=== PATIENT | male | born 1965 | race Caucasian/White ===

== ENCOUNTER 2019-03-02 10:43 | Inpatient (IN) | payer OTHER ==
[2019-03-02 11:20] VITALS: BMI 36.4
--- NOTE | 2019-03-02 12:36 | HP ---
CIWA Score Nausea/Vomitin-No Nausea/No Vomiting Muscle Tremors: 1-None Visible, but [place] Anxiety: 1-Mildly Anxious Agitation: 1-Slight > Activity Paroxysmal Sweats: No Perspiration Orientation: 0-Oriented Tacttile Disturbances: 0-None Auditory Disturbances: 0-None Visual Disturbances: 0-None Headache: 0-None Present CIWA-Ar Total Score: 3 - Admission Criteria OASAS Guidelines: Admission for Medically Managed Detox: Requires at least one of the followin. CIWA greater than 12 2. Seizures within the past 24 hours 3. Delirium tremens within the past 24 hours 4. Hallucinations within the past 24 hours 5. Acute intervention needed for co occurring medical disorder 6. Acute intervention needed for co occurring psychiatric disorder 7. Severe withdrawal that cannot be handled at a lower level of care (continued vomiting, continued diarrhea, abnormal vital signs) requiring intravenous medication and/or fluids 8. Admission ROS S - [facility] Chief Complaint: "I'm here for rehab" Allergies/Adverse Reactions: Allergies Allergy/AdvReac Type Severity Reaction Status Date / Time No Known Allergies Allergy Verified 03/02/19 11:14 History of Present Illness: 53 year old male with a past medical history of HIV (on HAART), angioplasty in R leg (2 stents), DVT in R leg (since 2005, on eliquis), hypertension, hypercholesterolemia here for rehab from alcohol and crack/cocaine. Was just in detox [facility] ([address]) that finished this morning, last dose of librium was last night. Had been in rehab before 7 years ago. Longest time clean 18 months (4-5 years ago). 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 - Detox or Rehab [facility] Level of Care: Medically Managed Breathalyzer - Breathalyzer Breathalyzer: 0 Urine Drug Screen - Test Device Lot number: [id number] Expiration date: 10/30/20 - Control Is test valid?: Yes - Results Drug screen NEGATIVE: Yes Inpatient Rehab Admission - Rehab Decision to Admit Inpatient rehab admission?: Yes - Initial Determination Are CD services needed?: Yes Free of communicable disease: No Not in need of hospitalization: Yes - Rehab Admission Criteria Previous failed treatment: Yes Poor recovery environment: Yes Comorbidities: Yes Lacks judgement: No Patient is meeting Inpatient Rehab admission criteria:: Yes
[2019-03-02] MEDS ORDERED: guaiFENesin 200 MG/10 ML 10 ML UNIT-DOSE CUPS PO PRN (12:49)
[2019-03-02] MEDS ORDERED: P-EPHED 60MG/TRIPROLIDI 2.5MG TABLET PO PRN (12:49)
[2019-03-02] MEDS ORDERED: LOPERAMIDE HCL 2 MG CAPSULE PO PRN (12:49)
[2019-03-02] MEDS ORDERED: ACETAMINOPHEN 325 MG TABLET (FP) PO PRN (12:49)
[2019-03-02] MEDS ORDERED: MAGNESIUM HYDROX 2400MG/30ML ORAL SUSPENSION 30 ML CUP PO PRN (12:49)
[2019-03-02] MEDS ORDERED: IBUPROFEN 400 MG TABLET (FP) PO PRN (12:49)
[2019-03-02] MEDS ORDERED: MENTHOL/PHENOL 1 EACH UD MM PRN (12:49)
[2019-03-02] MEDS ORDERED: MAGNESIUM CITRATE 300 ML BOTTLE PO PRN (12:49)
[2019-03-02] MEDS ORDERED: MAG HYDROX/AL HYDROX/SIMETH 30 ML UNIT-DOSE CUP PO PRN (12:49)
--- NOTE | 2019-03-02 13:11 | PN ---
Teaching Attending Note Name of Resident: Iain Guerrero ATTENDING PHYSICIAN STATEMENT I saw and evaluated the patient. I reviewed the resident's note and discussed the case with the resident. I agree with the resident's findings and plan as documented. SUBJECTIVE: 53 y.o. male here for rehab , completed detox today , has d/c paperwork , had prn Librium taper does not recall last time he took meds, utox neg bzo . Longest sobriety 18 mo , 4-5 ys ago . prior use 2 pints vodka/ day since age 18 , denies seizures, + blackouts . cocaine : 1.5 gr via inhalation PMHx : HIV (on HAART), angioplasty in R leg (2 stents), DVT in R leg (since 2005, on eliquis), IVC filter , hypertension, hypercholesterolemia OBJECTIVE: wnwd . ASSESSMENT AND PLAN: Alcohol dependence / Cocaine dependence - rehab Vital Signs - 24 hr 03/02/19 03/02/19 11:14 14:17 Temperature 98 F 98.1 F Pulse Rate 69 68 Respiratory 18 18 Rate Blood Pressure 133/86 121/75
[2019-03-02 17:13] LABS: HEMOGLOBIN 14.7 GM/dL (11.7-16.9); MCH 31.7 pg (25.7-33.7); MCHC 32.8 g/dl (32.0-35.9); MEAN CELL VOLUME 96.9 fl (80-96); MEAN PLT VOLUME 9.1 fl (7.5-11.1); PLATELET COUNT 274 K/MM3 (134-434); RBC 4.64 M/mm3 (4.00-5.60); RDW 13.6 % (11.9-15.9); WHITE BLOOD COUNT 9.3 K/mm3 (4.0-10.0)
[2019-03-02 17:16] LABS: ALBUMIN 4.1 g/dl (3.4-5.0); BILIRUBIN,TOTAL 0.3 mg/dL (0.2-1); BLOOD UREA NITROGEN 17.9 mg/dL (7-18); CALCIUM 8.9 mg/dL (8.5-10.1); TOT PROT 7.7 g/dl (6.4-8.2)
[2019-03-02] MEDS ORDERED: ATORVASTATIN CA 20 MG TABLET (FP) ONE (19:46)
[2019-03-02] MEDS: ATORVASTATIN CA 20 MG TABLET (FP) PO SCH (21:56)
[2019-03-02] MEDS: APIXABAN 2.5 MG TABLET PO SCH (21:56)
[2019-03-02] MEDS: THIAMINE HCL 100 MG TABLET (FP) PO SCH (21:56)
[2019-03-02] MEDS ORDERED: MAGNESIUM HYDROX 2400MG/30ML ORAL SUSPENSION 30 ML CUP ONE (21:58)
[2019-03-03] MEDS: BICTEGRAV/EMTRICIT/TENOFOV (BIKTARVY) 50-200-25 MG TABLET PO SCH (07:06)
[2019-03-03] MEDS: ASPIRIN 81 MG CHEWABLE TABLETS PO SCH (10:48)
[2019-03-03] MEDS: APIXABAN 2.5 MG TABLET PO SCH ×2 (10:48→21:40)
[2019-03-03] MEDS: PRENATAL VITAMINS W/ FOLIC ACID TABLET (FP) PO SCH (10:48)
[2019-03-03] MEDS: amLODIPine BESYLATE 10 MG TABLET (FP) PO SCH (10:48)
[2019-03-03] MEDS ORDERED: FLU VACCINE QUAD 60 MCG/0.5 ML (MDV 19-20) IM ONE (12:00)
--- NOTE | 2019-03-03 16:34 | PN ---
[facility] Progress Note Note: Pt requesting EKG stating he was told on admission it was going to be done. He wants it because "I am on Eliquis". Pt was admitted yesterday from [facility](See H/P) . Reports finished detox at [facility] yesterday. Reports was at [facility] and D/C'd 02/08/19. Denies c/p,dizziness,headache, nausea or vomiting. Pt has been oob ambulating with steady gait all through the day. Participated in groups. Vital Signs - 24 hr 03/03/19 03/03/19 03/03/19 00:30 03:30 07:08 Temperature 98.4 F Pulse Rate 68 Respiratory 18 18 16 Rate Blood Pressure 132/79 Laboratory Tests 03/02/19 03/02/19 03/02/19 13:00 13:00 13:00 WBC 9.3 RBC 4.64 Hgb 14.7 Hct 45.0 MCV 96.9 H MCH 31.7 MCHC 32.8 RDW 13.6 Plt Count 274 MPV 9.1 Sodium 141 Potassium 4.0 Chloride 107 Carbon Dioxide 29 Anion Gap 6 L BUN 17.9 Creatinine 1.0 Est GFR (CKD-EPI)AfAm 99.85 Est GFR (CKD-EPI)NonAf 86.15 Random Glucose 81 Calcium 8.9 Total Bilirubin 0.3 AST 27 ALT 61 Alkaline Phosphatase 73 Total Protein 7.7 Albumin 4.1 RPR Titer Nonreactive A/P Hx HTN HIV+ HLD DVT Right leg Angioplasty with stent Acohol dep Cocaine dep EKG, Routine ordered. D/w pt with nurse Santana to report any chest pain,arm pain/radiation,leg pain, dizziness to staff. D/w pt will need to transfer to [facility] if above symptoms present. Pt agreeable to poc.
[2019-03-03] MEDS: THIAMINE HCL 100 MG TABLET (FP) PO SCH (21:40)
[2019-03-03] MEDS: ATORVASTATIN CA 20 MG TABLET (FP) PO SCH (21:40)
[2019-03-04] MEDS: BICTEGRAV/EMTRICIT/TENOFOV (BIKTARVY) 50-200-25 MG TABLET PO SCH (07:06)
[2019-03-04] MEDS: APIXABAN 2.5 MG TABLET PO SCH ×2 (10:39→22:01)
[2019-03-04] MEDS: ASPIRIN 81 MG CHEWABLE TABLETS PO SCH (10:39)
[2019-03-04] MEDS: PRENATAL VITAMINS W/ FOLIC ACID TABLET (FP) PO SCH (10:39)
[2019-03-04] MEDS: amLODIPine BESYLATE 10 MG TABLET (FP) PO SCH (10:39)
--- NOTE | 2019-03-04 15:05 | EKG ---
Test Reason : Blood Pressure : / mmHG Vent. Rate : 062 BPM Atrial Rate : 062 BPM P-R Int : 164 ms QRS Dur : 098 ms QT Int : 428 ms P-R-T Axes : 050 047 048 degrees QTc Int : 434 ms NORMAL SINUS RHYTHM NORMAL ECG NO PREVIOUS ECGS AVAILABLE Confirmed by SILVIA RENDON MD ([id number]) on 03/04/2019 3:05:03 PM Referred By: Confirmed By:SILVIA RENDON MD
[2019-03-04 17:09] LABS: URINE APPEARANCE CLEAR; URINE BILIRUBIN NEGATIVE (NEGATIVE); URINE COLOR YELLOW; URINE GLUCOSE (UA) NEGATIVE (NEGATIVE); URINE KETONE NEGATIVE (NEGATIVE); URINE LEUK ESTERASE NEGATIVE (NEGATIVE); URINE NITRITE NEGATIVE (NEGATIVE); URINE PROTEIN NEGATIVE (NEGATIVE); URINE UROBILINOGEN 0.2 mg/dL (0.2-1.0)
[2019-03-04] MEDS: THIAMINE HCL 100 MG TABLET (FP) PO SCH (22:02)
[2019-03-04] MEDS: ATORVASTATIN CA 20 MG TABLET (FP) PO SCH (22:02)
[2019-03-05] MEDS: BICTEGRAV/EMTRICIT/TENOFOV (BIKTARVY) 50-200-25 MG TABLET PO SCH (07:26)
[2019-03-05] MEDS: ASPIRIN 81 MG CHEWABLE TABLETS PO SCH (11:09)
[2019-03-05] MEDS: amLODIPine BESYLATE 10 MG TABLET (FP) PO SCH (11:09)
[2019-03-05] MEDS: APIXABAN 2.5 MG TABLET PO SCH ×2 (11:09→21:50)
[2019-03-05] MEDS: PRENATAL VITAMINS W/ FOLIC ACID TABLET (FP) PO SCH (11:10)
[2019-03-05] MEDS: THIAMINE HCL 100 MG TABLET (FP) PO SCH (21:49)
[2019-03-05] MEDS: ATORVASTATIN CA 20 MG TABLET (FP) PO SCH (21:49)
[2019-03-06] MEDS: BICTEGRAV/EMTRICIT/TENOFOV (BIKTARVY) 50-200-25 MG TABLET PO SCH (07:09)
[2019-03-06] MEDS: amLODIPine BESYLATE 10 MG TABLET (FP) PO SCH (09:41)
[2019-03-06] MEDS: ASPIRIN 81 MG CHEWABLE TABLETS PO SCH (09:41)
[2019-03-06] MEDS: PRENATAL VITAMINS W/ FOLIC ACID TABLET (FP) PO SCH (09:42)
[2019-03-06] MEDS: APIXABAN 2.5 MG TABLET PO SCH ×2 (09:42→21:53)
[2019-03-06] MEDS: ATORVASTATIN CA 20 MG TABLET (FP) PO SCH (21:53)
[2019-03-06] MEDS: THIAMINE HCL 100 MG TABLET (FP) PO SCH (21:53)
[2019-03-07] MEDS: BICTEGRAV/EMTRICIT/TENOFOV (BIKTARVY) 50-200-25 MG TABLET PO SCH (07:40)
[2019-03-07] MEDS: ASPIRIN 81 MG CHEWABLE TABLETS PO SCH (10:46)
[2019-03-07] MEDS: amLODIPine BESYLATE 10 MG TABLET (FP) PO SCH (10:46)
[2019-03-07] MEDS: PRENATAL VITAMINS W/ FOLIC ACID TABLET (FP) PO SCH (10:47)
[2019-03-07] MEDS: APIXABAN 2.5 MG TABLET PO SCH ×2 (10:47→21:40)
[2019-03-07] MEDS: THIAMINE HCL 100 MG TABLET (FP) PO SCH (21:40)
[2019-03-07] MEDS: ATORVASTATIN CA 20 MG TABLET (FP) PO SCH (21:40)
[2019-03-08] MEDS: BICTEGRAV/EMTRICIT/TENOFOV (BIKTARVY) 50-200-25 MG TABLET PO SCH (07:31)
[2019-03-08] MEDS: amLODIPine BESYLATE 10 MG TABLET (FP) PO SCH (10:43)
[2019-03-08] MEDS: ASPIRIN 81 MG CHEWABLE TABLETS PO SCH (10:43)
[2019-03-08] MEDS: PRENATAL VITAMINS W/ FOLIC ACID TABLET (FP) PO SCH (10:43)
[2019-03-08] MEDS: APIXABAN 2.5 MG TABLET PO SCH ×2 (10:43→21:56)
[2019-03-08] MEDS: ATORVASTATIN CA 20 MG TABLET (FP) PO SCH (21:57)
[2019-03-08] MEDS: THIAMINE HCL 100 MG TABLET (FP) PO SCH (21:57)
[2019-03-09] MEDS: BICTEGRAV/EMTRICIT/TENOFOV (BIKTARVY) 50-200-25 MG TABLET PO SCH (07:17)
[2019-03-09] MEDS: PRENATAL VITAMINS W/ FOLIC ACID TABLET (FP) PO SCH (10:43)
[2019-03-09] MEDS: ASPIRIN 81 MG CHEWABLE TABLETS PO SCH (10:43)
[2019-03-09] MEDS: APIXABAN 2.5 MG TABLET PO SCH ×2 (10:43→21:50)
[2019-03-09] MEDS: amLODIPine BESYLATE 10 MG TABLET (FP) PO SCH (10:43)
[2019-03-09] MEDS: MELATONIN 5 MG TABLETS PO PRN (21:50)
[2019-03-09] MEDS: THIAMINE HCL 100 MG TABLET (FP) PO SCH (21:50)
[2019-03-09] MEDS: ATORVASTATIN CA 20 MG TABLET (FP) PO SCH (21:50)
[2019-03-10] MEDS: BICTEGRAV/EMTRICIT/TENOFOV (BIKTARVY) 50-200-25 MG TABLET PO SCH (07:02)
[2019-03-10] MEDS: amLODIPine BESYLATE 10 MG TABLET (FP) PO SCH (10:38)
[2019-03-10] MEDS: APIXABAN 2.5 MG TABLET PO SCH ×2 (10:38→21:28)
[2019-03-10] MEDS: ASPIRIN 81 MG CHEWABLE TABLETS PO SCH (10:38)
[2019-03-10] MEDS: PRENATAL VITAMINS W/ FOLIC ACID TABLET (FP) PO SCH (10:38)
[2019-03-10] MEDS: THIAMINE HCL 100 MG TABLET (FP) PO SCH (21:27)
[2019-03-10] MEDS: ATORVASTATIN CA 20 MG TABLET (FP) PO SCH (21:28)
[2019-03-10] MEDS: MELATONIN 5 MG TABLETS PO PRN (21:28)
[2019-03-11] MEDS: BICTEGRAV/EMTRICIT/TENOFOV (BIKTARVY) 50-200-25 MG TABLET PO SCH (07:04)
[2019-03-11] MEDS: amLODIPine BESYLATE 10 MG TABLET (FP) PO SCH (10:22)
[2019-03-11] MEDS: APIXABAN 2.5 MG TABLET PO SCH ×2 (10:22→21:39)
[2019-03-11] MEDS: PRENATAL VITAMINS W/ FOLIC ACID TABLET (FP) PO SCH (10:22)
[2019-03-11] MEDS: ASPIRIN 81 MG CHEWABLE TABLETS PO SCH (10:22)
[2019-03-11] MEDS: ATORVASTATIN CA 20 MG TABLET (FP) PO SCH (21:39)
[2019-03-11] MEDS: THIAMINE HCL 100 MG TABLET (FP) PO SCH (21:39)
[2019-03-12] MEDS: BICTEGRAV/EMTRICIT/TENOFOV (BIKTARVY) 50-200-25 MG TABLET PO SCH (07:00)
[2019-03-12] MEDS: PRENATAL VITAMINS W/ FOLIC ACID TABLET (FP) PO SCH (10:38)
[2019-03-12] MEDS: ASPIRIN 81 MG CHEWABLE TABLETS PO SCH (10:38)
[2019-03-12] MEDS: amLODIPine BESYLATE 10 MG TABLET (FP) PO SCH (10:38)
[2019-03-12] MEDS: APIXABAN 2.5 MG TABLET PO SCH ×2 (10:39→21:35)
[2019-03-12] MEDS: THIAMINE HCL 100 MG TABLET (FP) PO SCH (21:35)
[2019-03-12] MEDS: ATORVASTATIN CA 20 MG TABLET (FP) PO SCH (21:35)
[2019-03-13] MEDS: BICTEGRAV/EMTRICIT/TENOFOV (BIKTARVY) 50-200-25 MG TABLET PO SCH (07:51)
[2019-03-13] MEDS: PRENATAL VITAMINS W/ FOLIC ACID TABLET (FP) PO SCH (11:47)
[2019-03-13] MEDS: amLODIPine BESYLATE 10 MG TABLET (FP) PO SCH (11:48)
[2019-03-13] MEDS: ASPIRIN 81 MG CHEWABLE TABLETS PO SCH (11:48)
[2019-03-13] MEDS: APIXABAN 2.5 MG TABLET PO SCH ×2 (11:49→21:38)
[2019-03-13] MEDS: THIAMINE HCL 100 MG TABLET (FP) PO SCH (21:39)
[2019-03-13] MEDS: ATORVASTATIN CA 20 MG TABLET (FP) PO SCH (21:39)
[2019-03-13] MEDS: MELATONIN 5 MG TABLETS PO PRN (21:39)
[2019-03-14] MEDS: BICTEGRAV/EMTRICIT/TENOFOV (BIKTARVY) 50-200-25 MG TABLET PO SCH (10:26)
[2019-03-14] MEDS: APIXABAN 2.5 MG TABLET PO SCH ×2 (10:27→21:29)
[2019-03-14] MEDS: amLODIPine BESYLATE 10 MG TABLET (FP) PO SCH (10:27)
[2019-03-14] MEDS: ASPIRIN 81 MG CHEWABLE TABLETS PO SCH (10:27)
[2019-03-14] MEDS: PRENATAL VITAMINS W/ FOLIC ACID TABLET (FP) PO SCH (10:27)
[2019-03-14] MEDS: MELATONIN 5 MG TABLETS PO PRN (21:29)
[2019-03-14] MEDS: ATORVASTATIN CA 20 MG TABLET (FP) PO SCH (21:29)
[2019-03-14] MEDS: THIAMINE HCL 100 MG TABLET (FP) PO SCH (21:29)
[2019-03-15] MEDS: BICTEGRAV/EMTRICIT/TENOFOV (BIKTARVY) 50-200-25 MG TABLET PO SCH (07:33)
[2019-03-15] MEDS: APIXABAN 2.5 MG TABLET PO SCH ×2 (10:26→21:38)
[2019-03-15] MEDS: PRENATAL VITAMINS W/ FOLIC ACID TABLET (FP) PO SCH (10:26)
[2019-03-15] MEDS: amLODIPine BESYLATE 10 MG TABLET (FP) PO SCH (10:26)
[2019-03-15] MEDS: ASPIRIN 81 MG CHEWABLE TABLETS PO SCH (10:27)
[2019-03-15] MEDS: MELATONIN 5 MG TABLETS PO PRN (21:38)
[2019-03-15] MEDS: ATORVASTATIN CA 20 MG TABLET (FP) PO SCH (21:38)
[2019-03-15] MEDS: THIAMINE HCL 100 MG TABLET (FP) PO SCH (21:38)
[2019-03-16 06:41] VITALS: TEMP 97.3
[2019-03-16] MEDS: BICTEGRAV/EMTRICIT/TENOFOV (BIKTARVY) 50-200-25 MG TABLET PO SCH (08:14)
[2019-03-16] MEDS: amLODIPine BESYLATE 10 MG TABLET (FP) PO SCH (09:47)
[2019-03-16] MEDS: APIXABAN 2.5 MG TABLET PO SCH (09:47)
[2019-03-16] MEDS: PRENATAL VITAMINS W/ FOLIC ACID TABLET (FP) PO SCH (09:47)
[2019-03-16] MEDS: ASPIRIN 81 MG CHEWABLE TABLETS PO SCH (09:47)
--- NOTE | 2019-03-16 09:55 | DS ---
[facility] Rehab Discharge Summary - [facility] Rehab Discharge Summary Admission Date: 03/02/19 Discharge Date: 03/16/19 - History Present History: Alcohol dependence, Cocaine dependence Additional Comments: Pt is a 53 y/o male admitted to rehab on 03/02/19 after detox at [facility] for alcohol and cocaine dependence and discharged today after completion. Pt has been referred to CD aftercare at [facility] for continuing care. Pt reports he is connected to [facility] for primary care /I.D care. pt reports he has a PMD Dr. Iain Hussein. pt reports he has all his medications as well as refills on them and scheduled to follow up with clinic today at 11:00 a.m after discharge. Pertinent Past History: HIV+ DVT R leg(since 2005 on Eliquis) HTN(on med) HLD(on med) s/p Angioplasty R leg with 2 stents placement - Discharge Physical Exam Vital Signs: Vital Signs Temperature 97.3 F L 03/16/19 06:40 Pulse Rate 69 03/16/19 06:40 Respiratory Rate 18 03/16/19 06:40 Blood Pressure 104/99 03/16/19 06:40 O2 Sat by Pulse Oximetry (%) alert o x 3 nad oob ambulating with steady gait cardiac:s1 s2,rrr lungs:cta,nadia abdomen:+bs,+fatty,nt,nd extremities/skin:no edema,full ROM; skin intact. Pertinent Admission Physical Exam Findings: Laboratory Tests 03/02/19 03/02/19 03/02/19 13:00 13:00 13:00 WBC 9.3 RBC 4.64 Hgb 14.7 Hct 45.0 MCV 96.9 H MCH 31.7 MCHC 32.8 RDW 13.6 Plt Count 274 MPV 9.1 Sodium 141 Potassium 4.0 Chloride 107 Carbon Dioxide 29 Anion Gap 6 L BUN 17.9 Creatinine 1.0 Est GFR (CKD-EPI)AfAm 99.85 Est GFR (CKD-EPI)NonAf 86.15 Random Glucose 81 Calcium 8.9 Total Bilirubin 0.3 AST 27 ALT 61 Alkaline Phosphatase 73 Total Protein 7.7 Albumin 4.1 Urine Color Urine Appearance Urine pH Ur Specific [place] Urine Protein Urine Glucose (UA) Urine Ketones Urine Blood Urine Nitrite Urine Bilirubin Urine Urobilinogen Ur Leukocyte Esterase RPR Titer Nonreactive Hep C Ab Diagnostic 03/02/19 03/04/19 13:00 11:50 WBC RBC Hgb Hct MCV MCH MCHC RDW Plt Count MPV Sodium Potassium Chloride Carbon Dioxide Anion Gap BUN Creatinine Est GFR (CKD-EPI)AfAm Est GFR (CKD-EPI)NonAf Random Glucose Calcium Total Bilirubin AST ALT Alkaline Phosphatase Total Protein Albumin Urine Color Yellow Urine Appearance Clear Urine pH 7.0 Ur Specific [place] 1.018 Urine Protein Negative Urine Glucose (UA) Negative Urine Ketones Negative Urine Blood Negative Urine Nitrite Negative Urine Bilirubin Negative Urine Urobilinogen 0.2 Ur Leukocyte Esterase Negative RPR Titer Hep C Ab Diagnostic 0.2 EKG result= Normal Sinus Rhythm Normal EKG Pt made aware of result and copy given to patient on request. Status stable from admission. - Treatment Discharge Condition: Discharge condition good Hospital Course: Rehabilitated safely and responded well CD aftercare accepted. - Medication Discharge Medications: Ambulatory Orders Amlodipine Besylate [Norvasc -] 10 mg PO DAILY 03/02/19 Apixaban [Eliquis -] 2.5 mg PO BID 03/02/19 Aspirin [ASA -] 81 mg PO DAILY 03/02/19 Atorvastatin Ca [Lipitor] 20 mg PO HS 03/02/19 Bictegrav/Emtricit/Tenofov Ala [Biktarvy 50-200-25 mg Tablet] 1 each PO DAILY - Medication-Assisted Treatment (MAT) Medication-Assisted Treatment (MAT): No - Discharge Instructions Diet, activity, other medical instructions: Diet:RETA,Low chelesterol, low fat diet Activity: oob ad monica Other medical instructions:Follow up with CD aftercare as recommended at [facility]. @[address] [place] [address] Follow up with PMD Dr. Iain Hussein at [facility] for medical management today at 11:00 after discharge. @[address] [place] [address] - Diagnosis (1) HIV (human immunodeficiency virus infection) Current Visit: Yes Status: Chronic Qualifiers: HIV symptom status: unspecified Qualified Code(s): B20 - Human immunodeficiency virus [HIV] disease (2) Hypertension Current Visit: Yes Status: Chronic Qualifiers: Hypertension type: essential hypertension Qualified Code(s): I10 - Essential (primary) hypertension (3) HLD (hyperlipidemia) Current Visit: No Status: Chronic Qualifiers: Hyperlipidemia type: unspecified Qualified Code(s): E78.5 - Hyperlipidemia , unspecified (4) Hx of deep venous thrombosis Current Visit: No Status: Chronic (5) Status post angioplasty with stent Current Visit: Yes Status: Chronic (6) Alcohol dependence Current Visit: Yes Status: Chronic Qualifiers: Substance use status: uncomplicated Qualified Code(s): F10.20 - Alcohol dependence, uncomplicated (7) Cocaine dependence Current Visit: Yes Status: Chronic Qualifiers: Substance use status: uncomplicated Qualified Code(s): F14.20 - Cocaine dependence, uncomplicated - Follow-up Referral Minutes to complete discharge: 25 - AMA Did Patient Leave Against Medical Advice: No Additional Comments: No Rx sent to any pharmacy this admission. Pt reports he has own meds and refills.
[2019-03-16 09:57] VITALS: BP 135/75; PULSE 80
== END 2019-03-16 09:55 | disposition home or self-care (01) | DRG 772 ==
LOC: YASAS 10:43 → Y5N 13:16
PROVIDERS: ADMIT Neuromusculoskeletal Medicine & OMM; ATTEND Neuromusculoskeletal Medicine & OMM
PROC: HZ42ZZZ Group Counseling for Substance Abuse Treatment, Cognitive-Behavioral (ICD-10-PCS; principal; 2019-03-02)
DX: F10.20 Alcohol dependence, uncomplicated (principal); F14.20 Cocaine dependence, uncomplicated; Z21 Asymptomatic human immunodeficiency virus [HIV] infection status; I10 Essential (primary) hypertension; E78.5 Hyperlipidemia, unspecified; Z86.718 Personal history of other venous thrombosis and embolism; Z79.01 Long term (current) use of anticoagulants; Z95.820 Peripheral vascular angioplasty status with implants and grafts
CPT/HCPCS: 36415; 71046-TC-FY; 80053; 81003; 85027; 86593; 86803; 93005; 93010; Q2036

== ENCOUNTER 2023-04-17 13:15 | Inpatient (IN) | payer OTHER ==
[2023-04-17 14:37] VITALS: BMI 33.6
[2023-04-17] MEDS ORDERED: MAG HYDROX/AL HYDROX/SIMETH 30 ML UNIT-DOSE CUP PO PRN (14:57)
[2023-04-17] MEDS ORDERED: BISMUTH SUBSALICYLATE 524 MG/30 ML PO PRN (14:57)
[2023-04-17] MEDS ORDERED: DICYCLOMINE HCL 10 MG CAPSULE PO PRN (14:57)
[2023-04-17] MEDS ORDERED: ACETAMINOPHEN 325 MG TABLET (FP) PO PRN (14:57)
[2023-04-17] MEDS ORDERED: POLYETHYLENE GLYCOL (HEALTHYLAX) 3350 17 GM PACKET PO PRN (14:57)
[2023-04-17] MEDS ORDERED: IBUPROFEN 600 MG TABLET (FP) PO PRN (14:57)
[2023-04-17] MEDS ORDERED: BENZOCAINE/MENTHOL (CHLORASEPTIC ) LOZENGE MM PRN (14:57)
[2023-04-17] MEDS ORDERED: NALOXONE HCL (KLOXXADO) 8 MG SPRAY NS PRN (14:57)
[2023-04-17] MEDS ORDERED: BENZONATATE 200 MG CAPSULE PO PRN (14:57)
[2023-04-17] MEDS ORDERED: chlordiazePOXIDE HCL 25 MG CAPSULE PO PRN (14:57)
[2023-04-17] MEDS ORDERED: NALOXONE HCL 0.4 MG/ML VIAL IM PRN (14:57)
[2023-04-17] MEDS ORDERED: METHOCARBAMOL 500 MG TABLET PO PRN (14:57)
[2023-04-17] MEDS ORDERED: guaiFENesin 600 MG TABLET.ER (FP) PO PRN (14:57)
[2023-04-17] MEDS ORDERED: hydrOXYzine PAMOATE 25 MG CAPSULE (FP) PO PRN (14:57)
[2023-04-17] MEDS ORDERED: IBUPROFEN 400 MG TABLET (FP) PO PRN (14:57)
[2023-04-17] MEDS ORDERED: LOPERAMIDE HCL 2 MG CAPSULE PO PRN (14:57)
[2023-04-17] MEDS ORDERED: ONDANSETRON *ODT* 4 MG TABLET SL PRN (14:57)
[2023-04-17] MEDS ORDERED: HYDROCHLOROTHIAZIDE 25 MG TABLET (FP) PO ONE ×2 (15:02→18:00)
[2023-04-17] MEDS: chlordiazePOXIDE HCL 25 MG CAPSULE PO SCH ×2 (18:07→22:16)
[2023-04-17] MEDS: PRENATAL VITAMINS W/ FOLIC ACID TABLET (FP) PO SCH (18:15)
[2023-04-17] MEDS: NICOTINE 14 MG/24 HOURS TOPICAL PATCH TD SCH (18:15)
[2023-04-17] MEDS: MELATONIN 5 MG TABLETS PO SCH (22:16)
[2023-04-17] MEDS: ATORVASTATIN CA 20 MG TABLET (FP) PO SCH (22:16)
[2023-04-17] MEDS: APIXABAN 2.5 MG TABLET PO SCH (22:16)
[2023-04-17] MEDS: THIAMINE HCL 100 MG TABLET (FP) PO SCH (22:16)
[2023-04-18] MEDS: chlordiazePOXIDE HCL 25 MG CAPSULE PO SCH ×4 (05:47→22:17)
[2023-04-18] MEDS: BICTEGRAV/EMTRICIT/TENOFOV (BIKTARVY) 50-200-25 MG TABLET PO SCH (07:33)
[2023-04-18 08:49] LABS: CHLORIDE 105 mmol/L (98-107); HEMATOCRIT 44.4 % (35.4-49); HEMOGLOBIN 14.7 GM/dL (11.7-16.9); MCH 31.5 pg (25.7-33.7); MCHC 33.2 g/dl (32.0-35.9); MEAN CELL VOLUME 94.9 fl (80-96); MEAN PLT VOLUME 8.7 fl (7.5-11.1); PLATELET COUNT 299 10^3/uL (134-434); POTASSIUM 3.2 mmol/L (3.5-5.1); RBC 4.68 M/mm3 (4.00-5.60); RDW 13.4 % (11.9-15.9); SODIUM 139 mmol/L (136-145); WHITE BLOOD COUNT 6.1 K/mm3 (4.0-10.0)
[2023-04-18 08:51] LABS: CALCIUM 8.9 mg/dL (8.5-10.1)
[2023-04-18 08:52] LABS: ALBUMIN 3.6 g/dl (3.4-5.0); ANION GAP 5 mmol/L (4-13); BLOOD UREA NITROGEN 18.9 mg/dL (7-18); CO2 29 mmol/L (21-32); GLUCOSE,RANDOM 85 mg/dL (74-106)
[2023-04-18 08:55] LABS: CREATININE 1.2 mg/dL (0.55-1.3); SGOT/AST 24 U/L (15-37); SGPT/ALT 44 U/L (13-61)
[2023-04-18 08:57] LABS: BILIRUBIN,TOTAL 0.5 mg/dL (0.2-1); TOT PROT 7.2 g/dl (6.4-8.2)
[2023-04-18 08:58] LABS: ALK PHOS 70 U/L (45-117)
[2023-04-18] MEDS: amLODIPine BESYLATE 10 MG TABLET (FP) PO SCH (10:21)
[2023-04-18] MEDS: NICOTINE 14 MG/24 HOURS TOPICAL PATCH TD SCH (10:21)
[2023-04-18] MEDS: PRENATAL VITAMINS W/ FOLIC ACID TABLET (FP) PO SCH (10:22)
[2023-04-18] MEDS: APIXABAN 2.5 MG TABLET PO SCH ×2 (10:40→22:17)
[2023-04-18] MEDS ORDERED: POTASSIUM CHLORIDE ORAL LIQUID 20 MEQ/15 ML PO ONE ×3 (12:03→17:30)
[2023-04-18] MEDS: ATORVASTATIN CA 20 MG TABLET (FP) PO SCH (22:17)
[2023-04-18] MEDS: MELATONIN 5 MG TABLETS PO SCH (22:17)
[2023-04-18] MEDS: THIAMINE HCL 100 MG TABLET (FP) PO SCH (22:17)
[2023-04-19] MEDS: chlordiazePOXIDE HCL 25 MG CAPSULE PO SCH ×4 (05:40→22:38)
[2023-04-19] MEDS: BICTEGRAV/EMTRICIT/TENOFOV (BIKTARVY) 50-200-25 MG TABLET PO SCH (07:20)
[2023-04-19] MEDS: PRENATAL VITAMINS W/ FOLIC ACID TABLET (FP) PO SCH (10:09)
[2023-04-19] MEDS: NICOTINE 14 MG/24 HOURS TOPICAL PATCH TD SCH (10:10)
[2023-04-19] MEDS: HYDROCHLOROTHIAZIDE 12.5 MG CAPSULE (FP) PO SCH (10:10)
[2023-04-19] MEDS: APIXABAN 2.5 MG TABLET PO SCH ×2 (10:10→22:38)
[2023-04-19] MEDS: amLODIPine BESYLATE 10 MG TABLET (FP) PO SCH (10:11)
[2023-04-19] MEDS: THIAMINE HCL 100 MG TABLET (FP) PO SCH (22:37)
[2023-04-19] MEDS: ATORVASTATIN CA 20 MG TABLET (FP) PO SCH (22:38)
[2023-04-19] MEDS: MELATONIN 5 MG TABLETS PO SCH (22:39)
[2023-04-20] MEDS ORDERED: chlordiazePOXIDE HCL 10 MG CAPSULE PO PRN
[2023-04-20] MEDS: chlordiazePOXIDE HCL 10 MG CAPSULE PO SCH ×4 (05:30→22:11)
[2023-04-20] MEDS: BICTEGRAV/EMTRICIT/TENOFOV (BIKTARVY) 50-200-25 MG TABLET PO SCH ×2 (07:02→07:06)
[2023-04-20] MEDS: PRENATAL VITAMINS W/ FOLIC ACID TABLET (FP) PO SCH (10:13)
[2023-04-20] MEDS: NICOTINE 14 MG/24 HOURS TOPICAL PATCH TD SCH (10:13)
[2023-04-20] MEDS: APIXABAN 2.5 MG TABLET PO SCH ×2 (10:14→22:10)
[2023-04-20] MEDS: HYDROCHLOROTHIAZIDE 12.5 MG CAPSULE (FP) PO SCH (10:14)
[2023-04-20] MEDS: amLODIPine BESYLATE 10 MG TABLET (FP) PO SCH (10:14)
[2023-04-20] MEDS: MAGNESIUM HYDROX 2400MG/30ML ORAL SUSPENSION 30 ML CUP PO PRN (10:19)
[2023-04-20] MEDS: THIAMINE HCL 100 MG TABLET (FP) PO SCH (22:11)
[2023-04-20] MEDS: MELATONIN 5 MG TABLETS PO SCH (22:11)
[2023-04-20] MEDS: ATORVASTATIN CA 20 MG TABLET (FP) PO SCH (22:11)
[2023-04-21] MEDS: chlordiazePOXIDE HCL 10 MG CAPSULE PO SCH ×2 (06:00→17:12)
[2023-04-21] MEDS: BICTEGRAV/EMTRICIT/TENOFOV (BIKTARVY) 50-200-25 MG TABLET PO SCH (07:48)
[2023-04-21] MEDS: NICOTINE 14 MG/24 HOURS TOPICAL PATCH TD SCH (10:36)
[2023-04-21] MEDS: PRENATAL VITAMINS W/ FOLIC ACID TABLET (FP) PO SCH (10:37)
[2023-04-21] MEDS: amLODIPine BESYLATE 10 MG TABLET (FP) PO SCH (10:39)
[2023-04-21] MEDS: HYDROCHLOROTHIAZIDE 12.5 MG CAPSULE (FP) PO SCH (10:39)
[2023-04-21] MEDS: MAGNESIUM HYDROX 2400MG/30ML ORAL SUSPENSION 30 ML CUP PO PRN (10:41)
[2023-04-21] MEDS: APIXABAN 2.5 MG TABLET PO SCH ×2 (10:58→22:04)
[2023-04-21] MEDS: ATORVASTATIN CA 20 MG TABLET (FP) PO SCH (22:04)
[2023-04-21] MEDS: THIAMINE HCL 100 MG TABLET (FP) PO SCH (22:04)
[2023-04-21] MEDS: MELATONIN 5 MG TABLETS PO SCH (22:05)
[2023-04-22] MEDS ORDERED: chlordiazePOXIDE HCL 10 MG CAPSULE PO ONE (05:00)
[2023-04-22 05:49] VITALS: RESP 18
[2023-04-22] MEDS: BICTEGRAV/EMTRICIT/TENOFOV (BIKTARVY) 50-200-25 MG TABLET PO SCH (07:35)
[2023-04-22 09:03] VITALS: BP 136/83; PULSE 75; TEMP 98
[2023-04-22] MEDS: amLODIPine BESYLATE 10 MG TABLET (FP) PO SCH (09:26)
[2023-04-22] MEDS: PRENATAL VITAMINS W/ FOLIC ACID TABLET (FP) PO SCH (09:26)
[2023-04-22] MEDS: HYDROCHLOROTHIAZIDE 12.5 MG CAPSULE (FP) PO SCH (09:26)
[2023-04-22] MEDS: APIXABAN 2.5 MG TABLET PO SCH (09:26)
[2023-04-22] MEDS: NICOTINE 14 MG/24 HOURS TOPICAL PATCH TD SCH (09:27)
== END 2023-04-22 12:17 | disposition other institution (70) | DRG 774 ==
LOC: YASAS 13:15 → Y6N 17:07
PROVIDERS: ADMIT Allergy & Immunology; ATTEND Surgery
PROC: HZ2ZZZZ Detoxification Services for Substance Abuse Treatment (ICD-10-PCS; principal; 2023-04-17)
DX: F10.230 Alcohol dependence with withdrawal, uncomplicated (principal); F14.20 Cocaine dependence, uncomplicated; F17.210 Nicotine dependence, cigarettes, uncomplicated; F19.280 Other psychoactive substance dependence with psychoactive substance-induced anxiety disorder; F19.282 Other psychoactive substance dependence with psychoactive substance-induced sleep disorder; Z21 Asymptomatic human immunodeficiency virus [HIV] infection status; E87.6 Hypokalemia; I10 Essential (primary) hypertension; E78.00 Pure hypercholesterolemia, unspecified; Z86.19 Personal history of other infectious and parasitic diseases; Z95.5 Presence of coronary angioplasty implant and graft; Z86.718 Personal history of other venous thrombosis and embolism; Z79.01 Long term (current) use of anticoagulants
CPT/HCPCS: 36415; 71046-TC-FY; 80053; 80307; 84132; 85027; 86593; 86780; 87635; 93005; 93010

== ENCOUNTER 2023-04-22 12:18 | Inpatient (IN) | payer OTHER ==
[2023-04-22] MEDS ORDERED: LOPERAMIDE HCL 2 MG CAPSULE PO PRN (12:33)
[2023-04-22] MEDS ORDERED: POLYETHYLENE GLYCOL (HEALTHYLAX) 3350 17 GM PACKET PO PRN (12:33)
[2023-04-22] MEDS ORDERED: hydrOXYzine PAMOATE 25 MG CAPSULE (FP) PO PRN (12:33)
[2023-04-22] MEDS ORDERED: BENZONATATE 200 MG CAPSULE PO PRN (12:33)
[2023-04-22] MEDS ORDERED: MAG HYDROX/AL HYDROX/SIMETH 30 ML UNIT-DOSE CUP PO PRN (12:33)
[2023-04-22] MEDS ORDERED: IBUPROFEN 400 MG TABLET (FP) PO PRN (12:33)
[2023-04-22] MEDS ORDERED: METHOCARBAMOL 500 MG TABLET PO PRN (12:33)
[2023-04-22] MEDS ORDERED: IBUPROFEN 600 MG TABLET (FP) PO PRN (12:33)
[2023-04-22] MEDS ORDERED: MAGNESIUM HYDROX 2400MG/30ML ORAL SUSPENSION 30 ML CUP PO PRN (12:33)
[2023-04-22] MEDS ORDERED: guaiFENesin 600 MG TABLET.ER (FP) PO PRN (12:33)
[2023-04-22] MEDS ORDERED: COLLOIDAL OATMEAL 1 BAR EACH TP PRN (12:33)
[2023-04-22] MEDS ORDERED: FLU VACCINE (FLULAVAL) PF 60 MCG/0.5 ML SYRINGE 2023-2024 IM ONE (12:43)
[2023-04-22] MEDS: THIAMINE HCL 100 MG TABLET (FP) PO SCH (21:04)
[2023-04-22] MEDS: APIXABAN 2.5 MG TABLET PO SCH (21:04)
[2023-04-22] MEDS: MELATONIN 5 MG TABLETS PO SCH (21:04)
[2023-04-23] MEDS: BICTEGRAV/EMTRICIT/TENOFOV (BIKTARVY) 50-200-25 MG TABLET PO SCH (07:00)
[2023-04-23 08:33] LABS: CHOLESTEROL 185 mg/dL (50-200)
[2023-04-23 08:35] LABS: LDL CHOLESTEROL (ONLY SJRH) 105 mg/dL (5-100)
[2023-04-23 08:37] LABS: HDL CHOLESTEROL 41 mg/dL (40-60)
[2023-04-23] MEDS: amLODIPine BESYLATE 10 MG TABLET (FP) PO SCH (10:40)
[2023-04-23] MEDS: APIXABAN 2.5 MG TABLET PO SCH ×2 (10:40→21:27)
[2023-04-23] MEDS: PRENATAL VITAMINS W/ FOLIC ACID TABLET (FP) PO SCH (10:40)
[2023-04-23] MEDS: HYDROCHLOROTHIAZIDE 12.5 MG CAPSULE (FP) PO SCH (10:40)
[2023-04-23] MEDS: NICOTINE 14 MG/24 HOURS TOPICAL PATCH TD SCH (10:41)
[2023-04-23] MEDS: THIAMINE HCL 100 MG TABLET (FP) PO SCH (21:26)
[2023-04-23] MEDS: MELATONIN 5 MG TABLETS PO SCH (21:27)
[2023-04-24] MEDS: BICTEGRAV/EMTRICIT/TENOFOV (BIKTARVY) 50-200-25 MG TABLET PO SCH (07:12)
[2023-04-24] MEDS: PRENATAL VITAMINS W/ FOLIC ACID TABLET (FP) PO SCH (09:41)
[2023-04-24] MEDS: GABAPENTIN 100 MG CAPSULE PO SCH ×2 (09:41→21:00)
[2023-04-24] MEDS: HYDROCHLOROTHIAZIDE 12.5 MG CAPSULE (FP) PO SCH (09:41)
[2023-04-24] MEDS: amLODIPine BESYLATE 10 MG TABLET (FP) PO SCH (09:41)
[2023-04-24] MEDS: APIXABAN 2.5 MG TABLET PO SCH ×2 (09:42→21:00)
[2023-04-24] MEDS: NICOTINE 14 MG/24 HOURS TOPICAL PATCH TD SCH (09:42)
[2023-04-24] MEDS: ACETAMINOPHEN 325 MG TABLET (FP) PO PRN (09:43)
[2023-04-24] MEDS: THIAMINE HCL 100 MG TABLET (FP) PO SCH (21:00)
[2023-04-24] MEDS: MELATONIN 5 MG TABLETS PO SCH (21:00)
[2023-04-24] MEDS: ATORVASTATIN CA 20 MG TABLET (FP) PO SCH (21:00)
[2023-04-25] MEDS: BICTEGRAV/EMTRICIT/TENOFOV (BIKTARVY) 50-200-25 MG TABLET PO SCH (07:12)
[2023-04-25] MEDS: amLODIPine BESYLATE 10 MG TABLET (FP) PO SCH (10:05)
[2023-04-25] MEDS: GABAPENTIN 100 MG CAPSULE PO SCH ×2 (10:05→21:32)
[2023-04-25] MEDS: NICOTINE 14 MG/24 HOURS TOPICAL PATCH TD SCH (10:05)
[2023-04-25] MEDS: APIXABAN 2.5 MG TABLET PO SCH ×2 (10:05→21:31)
[2023-04-25] MEDS: HYDROCHLOROTHIAZIDE 12.5 MG CAPSULE (FP) PO SCH (10:05)
[2023-04-25] MEDS: PRENATAL VITAMINS W/ FOLIC ACID TABLET (FP) PO SCH (10:05)
[2023-04-25] MEDS: SENNOSIDES 8.6MG TABLET (FP) PO PRN (10:06)
[2023-04-25] MEDS: NICOTINE POLACRILEX 2 MG GUM BUC PRN ×2 (17:05→21:33)
[2023-04-25] MEDS: THIAMINE HCL 100 MG TABLET (FP) PO SCH (21:32)
[2023-04-25] MEDS: ATORVASTATIN CA 20 MG TABLET (FP) PO SCH (21:32)
[2023-04-25] MEDS: MELATONIN 5 MG TABLETS PO SCH (21:32)
[2023-04-26] MEDS: ACETAMINOPHEN 325 MG TABLET (FP) PO PRN ×2 (06:38→10:04)
[2023-04-26] MEDS: BICTEGRAV/EMTRICIT/TENOFOV (BIKTARVY) 50-200-25 MG TABLET PO SCH (07:09)
[2023-04-26] MEDS: NICOTINE 14 MG/24 HOURS TOPICAL PATCH TD SCH (10:01)
[2023-04-26] MEDS: HYDROCHLOROTHIAZIDE 12.5 MG CAPSULE (FP) PO SCH (10:02)
[2023-04-26] MEDS: amLODIPine BESYLATE 10 MG TABLET (FP) PO SCH (10:02)
[2023-04-26] MEDS: GABAPENTIN 100 MG CAPSULE PO SCH ×2 (10:02→21:25)
[2023-04-26] MEDS: PRENATAL VITAMINS W/ FOLIC ACID TABLET (FP) PO SCH (10:02)
[2023-04-26] MEDS: APIXABAN 2.5 MG TABLET PO SCH ×2 (10:03→21:25)
[2023-04-26] MEDS: SENNOSIDES 8.6MG TABLET (FP) PO PRN (10:05)
[2023-04-26] MEDS: MELATONIN 5 MG TABLETS PO SCH (21:25)
[2023-04-26] MEDS: ATORVASTATIN CA 20 MG TABLET (FP) PO SCH (21:25)
[2023-04-26] MEDS: THIAMINE HCL 100 MG TABLET (FP) PO SCH (21:26)
[2023-04-27] MEDS: ACETAMINOPHEN 325 MG TABLET (FP) PO PRN ×3 (06:05→21:04)
[2023-04-27] MEDS: BICTEGRAV/EMTRICIT/TENOFOV (BIKTARVY) 50-200-25 MG TABLET PO SCH (07:08)
[2023-04-27] MEDS: amLODIPine BESYLATE 10 MG TABLET (FP) PO SCH (10:21)
[2023-04-27] MEDS: SENNOSIDES 8.6MG TABLET (FP) PO PRN (10:21)
[2023-04-27] MEDS: APIXABAN 2.5 MG TABLET PO SCH ×2 (10:21→21:03)
[2023-04-27] MEDS: HYDROCHLOROTHIAZIDE 12.5 MG CAPSULE (FP) PO SCH (10:21)
[2023-04-27] MEDS: GABAPENTIN 100 MG CAPSULE PO SCH ×2 (10:21→21:03)
[2023-04-27] MEDS: NICOTINE 14 MG/24 HOURS TOPICAL PATCH TD SCH (10:22)
[2023-04-27] MEDS: PRENATAL VITAMINS W/ FOLIC ACID TABLET (FP) PO SCH (10:22)
[2023-04-27] MEDS: MELATONIN 5 MG TABLETS PO SCH (21:03)
[2023-04-27] MEDS: THIAMINE HCL 100 MG TABLET (FP) PO SCH (21:03)
[2023-04-27] MEDS: ATORVASTATIN CA 20 MG TABLET (FP) PO SCH (21:03)
[2023-04-28] MEDS: BICTEGRAV/EMTRICIT/TENOFOV (BIKTARVY) 50-200-25 MG TABLET PO SCH (07:03)
[2023-04-28] MEDS: SENNOSIDES 8.6MG TABLET (FP) PO PRN (07:03)
[2023-04-28] MEDS: ACETAMINOPHEN 325 MG TABLET (FP) PO PRN ×3 (07:42→21:05)
[2023-04-28] MEDS: GABAPENTIN 100 MG CAPSULE PO SCH ×2 (10:18→21:04)
[2023-04-28] MEDS: amLODIPine BESYLATE 10 MG TABLET (FP) PO SCH (10:18)
[2023-04-28] MEDS: HYDROCHLOROTHIAZIDE 12.5 MG CAPSULE (FP) PO SCH (10:18)
[2023-04-28] MEDS: NICOTINE 14 MG/24 HOURS TOPICAL PATCH TD SCH (10:19)
[2023-04-28] MEDS: PRENATAL VITAMINS W/ FOLIC ACID TABLET (FP) PO SCH (10:19)
[2023-04-28] MEDS: APIXABAN 2.5 MG TABLET PO SCH ×2 (10:19→21:04)
[2023-04-28] MEDS: ATORVASTATIN CA 20 MG TABLET (FP) PO SCH (21:04)
[2023-04-28] MEDS: THIAMINE HCL 100 MG TABLET (FP) PO SCH (21:05)
[2023-04-28] MEDS: MELATONIN 5 MG TABLETS PO SCH (21:05)
[2023-04-29] MEDS: BICTEGRAV/EMTRICIT/TENOFOV (BIKTARVY) 50-200-25 MG TABLET PO SCH (07:13)
[2023-04-29] MEDS: GABAPENTIN 100 MG CAPSULE PO SCH ×2 (09:53→21:01)
[2023-04-29] MEDS: amLODIPine BESYLATE 10 MG TABLET (FP) PO SCH (09:53)
[2023-04-29] MEDS: NICOTINE 14 MG/24 HOURS TOPICAL PATCH TD SCH (09:53)
[2023-04-29] MEDS: HYDROCHLOROTHIAZIDE 12.5 MG CAPSULE (FP) PO SCH (09:53)
[2023-04-29] MEDS: PRENATAL VITAMINS W/ FOLIC ACID TABLET (FP) PO SCH (09:54)
[2023-04-29] MEDS: APIXABAN 2.5 MG TABLET PO SCH ×2 (09:54→21:01)
[2023-04-29] MEDS: ACETAMINOPHEN 325 MG TABLET (FP) PO PRN (09:54)
[2023-04-29] MEDS: SENNOSIDES 8.6MG TABLET (FP) PO PRN (09:56)
[2023-04-29] MEDS: MELATONIN 5 MG TABLETS PO SCH (21:01)
[2023-04-29] MEDS: THIAMINE HCL 100 MG TABLET (FP) PO SCH (21:01)
[2023-04-29] MEDS: ATORVASTATIN CA 20 MG TABLET (FP) PO SCH (21:01)
[2023-04-29] MEDS: P-EPHED 60MG/TRIPROLIDI 2.5MG TABLET PO PRN (22:02)
[2023-04-30] MEDS: ACETAMINOPHEN 325 MG TABLET (FP) PO PRN ×2 (06:12→21:05)
[2023-04-30] MEDS: SENNOSIDES 8.6MG TABLET (FP) PO PRN ×3 (06:14→21:05)
[2023-04-30] MEDS: BICTEGRAV/EMTRICIT/TENOFOV (BIKTARVY) 50-200-25 MG TABLET PO SCH (07:02)
[2023-04-30 07:23] VITALS: RESP 18
[2023-04-30] MEDS: HYDROCHLOROTHIAZIDE 12.5 MG CAPSULE (FP) PO SCH (10:33)
[2023-04-30] MEDS: GABAPENTIN 100 MG CAPSULE PO SCH ×3 (10:33→21:04)
[2023-04-30] MEDS: HYDROCHLOROTHIAZIDE 25 MG TABLET (FP) PO SCH (10:34)
[2023-04-30] MEDS: APIXABAN 2.5 MG TABLET PO SCH ×2 (10:34→21:04)
[2023-04-30] MEDS: PRENATAL VITAMINS W/ FOLIC ACID TABLET (FP) PO SCH (10:34)
[2023-04-30] MEDS: amLODIPine BESYLATE 10 MG TABLET (FP) PO SCH (10:34)
[2023-04-30] MEDS: P-EPHED 60MG/TRIPROLIDI 2.5MG TABLET PO PRN ×2 (10:35→21:05)
[2023-04-30] MEDS: NICOTINE 14 MG/24 HOURS TOPICAL PATCH TD SCH (10:35)
[2023-04-30] MEDS: BENZOCAINE/MENTHOL (CHLORASEPTIC ) LOZENGE MM PRN (10:36)
[2023-04-30] MEDS: ATORVASTATIN CA 20 MG TABLET (FP) PO SCH (21:04)
[2023-04-30] MEDS: THIAMINE HCL 100 MG TABLET (FP) PO SCH (21:04)
[2023-04-30] MEDS: MELATONIN 5 MG TABLETS PO SCH (21:05)
[2023-05-01] MEDS: GABAPENTIN 100 MG CAPSULE PO SCH ×3 (05:56→21:03)
[2023-05-01] MEDS: P-EPHED 60MG/TRIPROLIDI 2.5MG TABLET PO PRN ×2 (05:57→21:04)
[2023-05-01] MEDS: BENZOCAINE/MENTHOL (CHLORASEPTIC ) LOZENGE MM PRN ×2 (05:58→13:50)
[2023-05-01] MEDS: SENNOSIDES 8.6MG TABLET (FP) PO PRN (05:58)
[2023-05-01] MEDS: ACETAMINOPHEN 325 MG TABLET (FP) PO PRN ×2 (05:59→21:04)
[2023-05-01] MEDS: BICTEGRAV/EMTRICIT/TENOFOV (BIKTARVY) 50-200-25 MG TABLET PO SCH (07:03)
[2023-05-01] MEDS: HYDROCHLOROTHIAZIDE 25 MG TABLET (FP) PO SCH (10:33)
[2023-05-01] MEDS: amLODIPine BESYLATE 10 MG TABLET (FP) PO SCH (10:33)
[2023-05-01] MEDS: PRENATAL VITAMINS W/ FOLIC ACID TABLET (FP) PO SCH (10:33)
[2023-05-01] MEDS: NICOTINE 14 MG/24 HOURS TOPICAL PATCH TD SCH (10:34)
[2023-05-01] MEDS: APIXABAN 2.5 MG TABLET PO SCH ×2 (11:01→21:03)
[2023-05-01] MEDS: ATORVASTATIN CA 20 MG TABLET (FP) PO SCH (21:03)
[2023-05-01] MEDS: THIAMINE HCL 100 MG TABLET (FP) PO SCH (21:03)
[2023-05-01] MEDS: MELATONIN 5 MG TABLETS PO SCH (21:03)
[2023-05-02] MEDS: GABAPENTIN 100 MG CAPSULE PO SCH ×3 (06:07→21:23)
[2023-05-02] MEDS: P-EPHED 60MG/TRIPROLIDI 2.5MG TABLET PO PRN (06:07)
[2023-05-02] MEDS: ACETAMINOPHEN 325 MG TABLET (FP) PO PRN (06:08)
[2023-05-02] MEDS: BICTEGRAV/EMTRICIT/TENOFOV (BIKTARVY) 50-200-25 MG TABLET PO SCH (07:02)
[2023-05-02] MEDS: PRENATAL VITAMINS W/ FOLIC ACID TABLET (FP) PO SCH (09:45)
[2023-05-02] MEDS: HYDROCHLOROTHIAZIDE 25 MG TABLET (FP) PO SCH (09:45)
[2023-05-02] MEDS: amLODIPine BESYLATE 10 MG TABLET (FP) PO SCH (09:45)
[2023-05-02] MEDS: SENNOSIDES 8.6MG TABLET (FP) PO PRN (09:46)
[2023-05-02] MEDS: APIXABAN 2.5 MG TABLET PO SCH ×2 (09:46→21:23)
[2023-05-02] MEDS: NICOTINE 14 MG/24 HOURS TOPICAL PATCH TD SCH (09:46)
[2023-05-02] MEDS: BENZOCAINE/MENTHOL (CHLORASEPTIC ) LOZENGE MM PRN (09:47)
[2023-05-02] MEDS: MELATONIN 5 MG TABLETS PO SCH (21:23)
[2023-05-02] MEDS: ATORVASTATIN CA 20 MG TABLET (FP) PO SCH (21:23)
[2023-05-02] MEDS: THIAMINE HCL 100 MG TABLET (FP) PO SCH (21:23)
[2023-05-03] MEDS: GABAPENTIN 100 MG CAPSULE PO SCH ×3 (06:13→21:08)
[2023-05-03] MEDS: ACETAMINOPHEN 325 MG TABLET (FP) PO PRN (06:13)
[2023-05-03] MEDS: SENNOSIDES 8.6MG TABLET (FP) PO PRN ×2 (06:14→10:25)
[2023-05-03] MEDS: BICTEGRAV/EMTRICIT/TENOFOV (BIKTARVY) 50-200-25 MG TABLET PO SCH (07:12)
[2023-05-03] MEDS: amLODIPine BESYLATE 10 MG TABLET (FP) PO SCH (10:24)
[2023-05-03] MEDS: APIXABAN 2.5 MG TABLET PO SCH ×2 (10:24→21:08)
[2023-05-03] MEDS: NICOTINE 14 MG/24 HOURS TOPICAL PATCH TD SCH (10:24)
[2023-05-03] MEDS: HYDROCHLOROTHIAZIDE 25 MG TABLET (FP) PO SCH (10:24)
[2023-05-03] MEDS: PRENATAL VITAMINS W/ FOLIC ACID TABLET (FP) PO SCH (10:24)
[2023-05-03] MEDS: P-EPHED 60MG/TRIPROLIDI 2.5MG TABLET PO PRN (10:25)
[2023-05-03] MEDS: MELATONIN 5 MG TABLETS PO SCH (21:08)
[2023-05-03] MEDS: ATORVASTATIN CA 20 MG TABLET (FP) PO SCH (21:08)
[2023-05-03] MEDS: THIAMINE HCL 100 MG TABLET (FP) PO SCH (21:08)
[2023-05-04] MEDS: GABAPENTIN 100 MG CAPSULE PO SCH ×3 (06:53→21:10)
[2023-05-04] MEDS: ACETAMINOPHEN 325 MG TABLET (FP) PO PRN ×2 (06:54→10:06)
[2023-05-04] MEDS: SENNOSIDES 8.6MG TABLET (FP) PO PRN (06:55)
[2023-05-04] MEDS: BICTEGRAV/EMTRICIT/TENOFOV (BIKTARVY) 50-200-25 MG TABLET PO SCH (07:10)
[2023-05-04] MEDS: PRENATAL VITAMINS W/ FOLIC ACID TABLET (FP) PO SCH (10:05)
[2023-05-04] MEDS: amLODIPine BESYLATE 10 MG TABLET (FP) PO SCH (10:05)
[2023-05-04] MEDS: HYDROCHLOROTHIAZIDE 25 MG TABLET (FP) PO SCH (10:05)
[2023-05-04] MEDS: APIXABAN 2.5 MG TABLET PO SCH ×2 (10:05→21:22)
[2023-05-04] MEDS: NICOTINE 14 MG/24 HOURS TOPICAL PATCH TD SCH (10:08)
[2023-05-04 10:45] VITALS: TEMP 97.7
[2023-05-04] MEDS: THIAMINE HCL 100 MG TABLET (FP) PO SCH (21:10)
[2023-05-04] MEDS: MELATONIN 5 MG TABLETS PO SCH (21:10)
[2023-05-04] MEDS: ATORVASTATIN CA 20 MG TABLET (FP) PO SCH (21:10)
[2023-05-05] MEDS: GABAPENTIN 100 MG CAPSULE PO SCH ×3 (06:30→21:03)
[2023-05-05] MEDS: SENNOSIDES 8.6MG TABLET (FP) PO PRN ×2 (06:31→21:03)
[2023-05-05] MEDS: ACETAMINOPHEN 325 MG TABLET (FP) PO PRN (06:31)
[2023-05-05] MEDS: BICTEGRAV/EMTRICIT/TENOFOV (BIKTARVY) 50-200-25 MG TABLET PO SCH (07:02)
[2023-05-05] MEDS: APIXABAN 2.5 MG TABLET PO SCH ×2 (10:21→21:04)
[2023-05-05] MEDS: amLODIPine BESYLATE 10 MG TABLET (FP) PO SCH (10:21)
[2023-05-05] MEDS: HYDROCHLOROTHIAZIDE 25 MG TABLET (FP) PO SCH (10:21)
[2023-05-05] MEDS: NICOTINE 14 MG/24 HOURS TOPICAL PATCH TD SCH (10:21)
[2023-05-05] MEDS: PRENATAL VITAMINS W/ FOLIC ACID TABLET (FP) PO SCH (10:21)
[2023-05-05] MEDS: MELATONIN 5 MG TABLETS PO SCH (21:03)
[2023-05-05] MEDS: ATORVASTATIN CA 20 MG TABLET (FP) PO SCH (21:03)
[2023-05-05] MEDS: THIAMINE HCL 100 MG TABLET (FP) PO SCH (21:03)
[2023-05-06] MEDS: SENNOSIDES 8.6MG TABLET (FP) PO PRN (06:14)
[2023-05-06] MEDS: GABAPENTIN 100 MG CAPSULE PO SCH (06:14)
[2023-05-06] MEDS: ACETAMINOPHEN 325 MG TABLET (FP) PO PRN (06:15)
[2023-05-06] MEDS: BICTEGRAV/EMTRICIT/TENOFOV (BIKTARVY) 50-200-25 MG TABLET PO SCH (07:05)
[2023-05-06 09:30] VITALS: BP 145/83; PULSE 76
[2023-05-06] MEDS: PRENATAL VITAMINS W/ FOLIC ACID TABLET (FP) PO SCH (09:30)
[2023-05-06] MEDS: amLODIPine BESYLATE 10 MG TABLET (FP) PO SCH (09:31)
[2023-05-06] MEDS: HYDROCHLOROTHIAZIDE 25 MG TABLET (FP) PO SCH (09:31)
[2023-05-06] MEDS: APIXABAN 2.5 MG TABLET PO SCH (09:31)
[2023-05-06] MEDS: NICOTINE 14 MG/24 HOURS TOPICAL PATCH TD SCH (09:32)
== END 2023-05-06 09:35 | disposition home or self-care (01) | DRG 772 ==
LOC: YASAS 12:18 → Y3W 12:22
PROVIDERS: ADMIT Allergy & Immunology; ATTEND Psychiatry & Neurology Pain Medicine
PROC: HZ42ZZZ Group Counseling for Substance Abuse Treatment, Cognitive-Behavioral (ICD-10-PCS; principal; 2023-04-22)
DX: F10.20 Alcohol dependence, uncomplicated (principal); F14.20 Cocaine dependence, uncomplicated; F17.210 Nicotine dependence, cigarettes, uncomplicated; Z21 Asymptomatic human immunodeficiency virus [HIV] infection status; E78.00 Pure hypercholesterolemia, unspecified; I10 Essential (primary) hypertension; R60.0 Localized edema; Z86.718 Personal history of other venous thrombosis and embolism; Z79.01 Long term (current) use of anticoagulants; Z86.19 Personal history of other infectious and parasitic diseases
CPT/HCPCS: 0241U-QW; 36415; 80061; 86803; 90686; G0008